=== PATIENT | male | born 1975 | race Caucasian/White ===

== ENCOUNTER 2018-02-26 10:19 | Observation (INO) | payer BC ==
[~2018-02-26] VITALS: Ht 185.4 cm; Wt 94.8 kg
[2018-02-26 11:26] LABS: Urine Bacteria NONE SEEN /hpf (None Seen); Urine Blood Negative /uL (Negative); Urine Mucus FEW (None Seen); Urine Specific Gravity 1.026 (1.001-1.035); Urine WBC 1 /hpf (0 - 3)
[2018-02-26 11:27] LABS: Basophils # (auto) 0 uL; Hemoglobin 16.4 g/dL (13.5-17.5); Mean Corpuscular Hgb Conc. 34.5 g/dL (32.0-36.0); Red Cell Distribution Width 12.9 % (11.8-14.3)
[2018-02-26 11:29] LABS: Basophils % (auto) 0.4 % (0.0-2.0); Eosinophils # (auto) 0.1 uL; Eosinophils % (auto) 0.7 % (0.0-7.0); Hematocrit 47.6 % (41.0-53.0); Lymphocytes % (auto) 12.6 % (10.0-50.0); Mean Corpuscular Hemoglobin 35.4 pg (28.0-32.0); Mean Corpuscular Volume 102.5 fL (80.0-100.0); Monocytes # (auto) 0.8 uL; Monocytes % (auto) 10.2 % (0.0-12.0); Neutrophils # (auto) 6.1 uL; Neutrophils % (auto) 76.1 % (37.0-80.0); Platelet Count (auto) 298 10^3/uL (140-450); Red Blood Cells 4.65 10^6/uL (4.5-5.90)
[2018-02-26 11:45] LABS: Alanine Aminotransferase 97 U/L (16-61); Albumin 4.3 g/dL (3.4-5.0); Alkaline Phosphatase 109 U/L (45-117); Anion Gap 8 (5-15); Aspartate Aminotransferase 78 U/L (15-37); BUN/Creatinine Ratio 11.9; Bilirubin, Total 0.8 mg/dL (0.2-1.0); Blood Urea Nitrogen 10 mg/dL (7-18); Calcium 8.7 mg/dL (8.5-10.1); Carbon Dioxide 24 mmol/L (21-32); Chloride 106 mmol/L (98-107); GFR African American 127 mL/min; GFR Non-African American 105 mL/min; Glucose 111 mg/dL (74-106); Potassium 4.2 mmol/L (3.5-5.1); Sodium 138 mmol/L (136-145); Total Protein 7.9 g/dL (6.4-8.2)
[2018-02-26 11:52] LABS: Alcohol, Urine < 3.0 mg/dL (0-5); Amphetamine Screen, Urine NEGATIVE (NEGATIVE); Barbiturate Scree,Urine NEGATIVE (NEGATIVE); Benzodiazephine Screen, Urine NEGATIVE (NEGATIVE); Cannabinoid Screen, Urine NEGATIVE (NEGATIVE); Cocaine Screen, Urine NEGATIVE (NEGATIVE); Opiate Scree,Urine POSITIVE (NEGATIVE); Phencyclidine Screen, Urine NEGATIVE (NEGATIVE)
[2018-02-26 12:57] LABS: INR 0.92 (0.9-1.15); Partial Thromboplastin Time 28.2 sec (23.78-33.04); Prothrombin Time 9.9 sec (9.27-12.13)
[2018-02-26] MEDS ORDERED: HYDROcodone-ACET 10/325MG TAB PO ONE (15:15)
[2018-02-26 15:18] VITALS: BP 151/93
== END 2018-02-26 16:39 | disposition home or self-care (01) | DRG 313 ==
LOC: ER 10:21 → OVERFLOW 10:22 → ER 16:38
PROVIDERS: ADMIT Family Medicine; ATTEND Family Medicine
DX: R07.2 Precordial pain (principal); R94.5 Abnormal results of liver function studies; Z82.49 Family history of ischemic heart disease and other diseases of the circulatory system; F17.210 Nicotine dependence, cigarettes, uncomplicated
CPT/HCPCS: 36415; 71046; 80053; 80307; 81001; 84484; 85025; 85379; 85610; 85730; 93005; 99285; G0378

== ENCOUNTER 2022-09-02 07:12 | Emergency (ER) | payer BC ==
[~2022-09-02] VITALS: Ht 185.4 cm; Wt 92.7 kg
[2022-09-02] MEDS ORDERED: FOLIC ACID 1 MG in D5W 5% 50 ML INJ STA (07:53)
[2022-09-02] MEDS ORDERED: THIAMINE 100mg/ml INJ (200mg/2ml VIAL) IV ONE (08:00)
[2022-09-02] MEDS ORDERED: MULTIPLE VITAMIN TAB PO ONE (08:00)
[2022-09-02 08:13] LABS: Basophils # (auto) 0.1 10 ^3/uL (0-0.2); Eosinophils # (auto) 0.1 10 ^3/uL (0-0.8)
[2022-09-02 08:14] LABS: Basophils % (auto) 0.7 % (0.0-2.0); Hematocrit 41.5 % (41.0-53.0); Lymphocytes # (auto) 3.3 10 ^3/uL (0.4-5.4); Lymphocytes % (auto) 34.5 % (10.0-50.0); Mean Corpuscular Hemoglobin 35.7 pg (28.0-32.0); Mean Corpuscular Hgb Conc. 36.1 g/dL (32.0-36.0); Mean Corpuscular Volume 98.7 fL (80.0-100.0); Monocytes # (auto) 0.7 10 ^3/uL (0-1.3); Monocytes % (auto) 7.1 % (0.0-12.0); Neutrophils # (auto) 5.4 10 ^3/uL (1.6-8.6); Neutrophils % (auto) 56.7 % (37.0-80.0); Nucleated Red Blood Cells % 0.1 %; Red Cell Distribution Width 13.2 % (11.8-14.3); White Blood Cell 9.4 10^3/uL (4.4-10.8)
[2022-09-02 08:18] LABS: Albumin 3.2 g/dL (3.4-5.0); Calcium 8.3 mg/dL (8.5-10.1); Magnesium 2.3 mg/dL (1.6-2.6); Potassium 3.3 mmol/L (3.5-5.1)
[2022-09-02 08:21] LABS: BUN/Creatinine Ratio 6.9 (10.0-20.0); Bilirubin, Total 0.4 mg/dL (0.2-1.0); Total Protein 6.9 g/dL (6.4-8.2)
[2022-09-02 08:30] LABS: INR 1.03 (0.9-1.15); Partial Thromboplastin Time 26.3 sec (24.6-33.4)
[2022-09-02] MEDS ORDERED: PANTOPRAZOLE 40 MG/10 ML VIAL INJ IV ONE (09:15)
[2022-09-02 10:30] LABS: Acetaminophen < 2.0 ug/mL (10-30); Salicylate 3.3 mg/dL (2.8-20.0)
[2022-09-02] MEDS ORDERED: SODIUM CHLORIDE 0.9% 1,000 ML IV ONE (11:00)
[2022-09-02] MEDS ORDERED: LORazepam 2MG/ML-1ML VIAL IV ONE ×2 (12:30→14:45)
[2022-09-02 12:44] LABS: Amphetamine Screen, Urine NEGATIVE (NEGATIVE); Barbiturate Scree,Urine NEGATIVE (NEGATIVE); Benzodiazephine Screen, Urine NEGATIVE (NEGATIVE); Cannabinoid Screen, Urine NEGATIVE (NEGATIVE); Cocaine Screen, Urine NEGATIVE (NEGATIVE); Phencyclidine Screen, Urine NEGATIVE (NEGATIVE)
[2022-09-02 12:45] LABS: Opiate Scree,Urine POSITIVE (NEGATIVE)
[2022-09-02 12:49] LABS: Urine Bacteria NONE SEEN /hpf (None Seen); Urine Blood Negative /uL (Negative); Urine Specific Gravity 1.012 (1.001-1.035); Urine WBC 1 /hpf (0 - 3)
[2022-09-02] MEDS ORDERED: CHL25C PO (13:21)
[2022-09-02 15:18] VITALS: BP 104/64
== END 2022-09-02 15:20 | disposition home or self-care (01) ==
LOC: ER 07:12
DX: F10.10 Alcohol abuse, uncomplicated (principal)
CPT/HCPCS: 36415; 71045; 80053; 80307; 80320; 80329; 81001; 83735; 85025; 85610; 85730; 96365; 96375; 96376; 99284; C9113; J2060; J3411; J7030; J7060

== ENCOUNTER 2024-09-03 12:29 | Inpatient (IN) | payer BC, MEDICAID ==
[~2024-09-03] VITALS: Ht 182.9 cm; Wt 96.9 kg
[~2024-09-03 12:29] MED LIST: CHL25C PO
[2024-09-03 13:35] VITALS: PULSE 105; RESP 20; O2SAT 92
[2024-09-03] MEDS: SODIUM CHLORIDE 0.9% 1,000 ML IV ONE ×2 (13:45→13:46)
[2024-09-03] MEDS: THIAMINE 100mg/ml INJ (200mg/2ml VIAL) IV ONE (13:46)
[2024-09-03] MEDS: LORazepam 2MG/ML-1ML VIAL IV ONE ×2 (13:46→18:29)
--- NOTE | 2024-09-03 13:52 | ED.PDOC ---
History of Present Illness HPI Comments 49 y/o M, brought in by presents to the ED for CC of ETOH withdrawal. Per patient's , patient has been binge drinking Vodka for [id number]. Patient's reports, patient has not had anything to eat in [id number] besides x2 jello cups. Upon arrival to the ED, patient is disorientated and having visual atkinson llucinations. No other symptoms or modifying factors obtainable at this time due to patients condition. Chief Complaint: Withdrawal Time Seen by MD: 13:20 Primary Care Provider: ЕЛЕНА Reviewed Notes: Nurses Notes, Medications, Allergies Allergies: Uncoded Allergies: CONTRAST IV (Allergy, Unknown, 09/02/22) Home Meds Active Scripts Chlordiazepoxide Hcl (Librium) 25 Mg Cp, 100 MG PO Q6HPRN PRN for 4 Days, #40 CAP Day 1: 100 mg by mouth every 6 hours as needed for symptoms Day 2: 100 mg by mouth every 8 hours as needed for symptoms Day 3: 100 mg by mouth every 12 hours as needed for symptoms Day 4: 100 mg by mouth at bedtime as needed Prov:GRACE GREER MD 09/02/22 Information Source: Patient Mode of Arrival: Wheelchair Severity: Moderate Timing: Days Duration: Since onset Prehospital treatment: None Family History Family History: No family hx of HTN Social History Smoker: Cigarettes, Greater Than 1 Pack/Day Alcohol: Rarely Drugs: Denies Drug Use Lives In: Home Unable to Obtain due to: Other (disorientation) Physical Exam General Appearance: Moderate Distress HEENT: Normal ENT Inspection, Pharynx Normal, TMs Normal Neck: Full Range of Motion, Non-Tender, Normal, Normal Inspection Respiratory: Chest Non-Tender, Lungs Clear, No Accessory Muscle Use, No Respiratory Distress, Normal Breath Sounds Cardiovascular: No Edema, No JVD, No Murmur, No Gallop, Normal Peripheral Pulses, Tachycardia Breast Exam: Deferred Gastrointestinal: No Organomegaly, Non Tender, No Pulsatile Mass, Normal Bowel Sounds, Soft Genitalia: Deferred Pelvic: Deferred Rectal: Deferred Extremities: No calf tenderness, Normal capillary refill, Normal inspection, Normal range of motion, Non-tender, No pedal edema Musculoskeletal : Apperance: Normal Neurologic: Alert, skein winder II-XII nml as Tested, No Motor Deficits, Normal Affect, Normal Mood, No Sensory Deficits Cerebellar Function: Normal Reflexes: Normal Skin: Dry, Normal Color, Warm Peripheral Pulses: 3+ Radial (R), 3+ Radial (L) Lymphatic: No Adenopathy Was a procedure done? Was a procedure done?: No Differential Dx Considerations may include: ETOH WITHDRAWAL X-Ray, Labs, Meds, VS Vital Signs Date Time Temp Pulse Resp B/P (MAP) Pulse Ox O2 Delivery O2 Flow Rate FiO2 09/03/24 15:00 109 22 134/94 (107) 95 09/03/24 14:41 105 20 119/103 (108) 92 09/03/24 14:38 109 26 134/92 (106) 93 09/03/24 13:35 105 20 92 Nasal Cannula* 1 24 09/03/24 13:22 98.5 125 20 119/103 (108) 92 98.5 09/03/24 12:55 97.0 125 21 157/98 (117) 95 97.0 Lab Test 09/03/24 14:03 Range/Units White Blood Count 8.4 4.4-10.8 10^3/uL Red Blood Count 3.97 L 4.5-5.90 10^6/uL Hemoglobin 13.9 13.5-17.5 g/dL Hematocrit 39.5 L 41.0-53.0 % Mean Corpuscular Volume 99.4 80.0-100.0 fL Mean Corpuscular Hemoglobin 35.1 H 28.0-32.0 pg Mean Corpuscular Hemoglobin Concent 35.3 32.0-36.0 g/dL Red Cell Distribution Width 13.6 11.8-14.3 % Platelet Count 183 140-450 10^3/uL Mean Platelet Volume 7.6 6.9-10.8 fL Neutrophils (%) (Auto) 75.7 37.0-80.0 % Lymphocytes (%) (Auto) 18.2 10.0-50.0 % Monocytes (%) (Auto) 5.6 0.0-12.0 % Eosinophils (%) (Auto) 0.2 0.0-7.0 % Basophils (%) (Auto) 0.3 0.0-2.0 % Neutrophils # (Auto) 6.4 1.6-8.6 10 ^3/uL Lymphocytes # (Auto) 1.5 0.4-5.4 10 ^3/uL Monocytes # (Auto) 0.5 0-1.3 10 ^3/uL Eosinophils # (Auto) 0 0-0.8 10 ^3/uL Basophils # (Auto) 0 0-0.2 10 ^3/uL Nucleated Red Blood Cells 0.1 % Sodium Level 134 L 136-145 mmol/L Potassium Level 3.8 3.5-5.1 mmol/L Chloride Level 95 L 98-107 mmol/L Carbon Dioxide Level 24 20-31 mmol/L Anion Gap 15 5-15 Blood Urea Nitrogen 13 9-23 mg/dL Creatinine 0.67 L 0.700-1.30 mg/dL Glomerular Filtration Rate Calc 113 >90 mL/min BUN/Creatinine Ratio 19.4 10.0-20.0 Serum Glucose 144 H 74-106 mg/dL Calcium Level 8.7 8.7-10.4 mg/dL Plasma/Serum Blood Alcohol 368.0 H <10 mg/dL Current Medications Medications (Trade) Dose Ordered Sig/Kwasi Route Start Time Stop Time Status Last Admin Thiamine HCl 100 mg ONCE ONCE IV 09/03/24 13:30 09/03/24 13:31 DC 09/03/24 13:46 Sodium Chloride 1,000 ml @ 1,000 mls/hr Q1H ONCE IV 09/03/24 13:30 09/03/24 14:29 DC 09/03/24 13:45 Sodium Chloride 1,000 ml @ 150 mls/hr Q6H40M ONCE IV 09/03/24 13:30 09/03/24 20:09 09/03/24 13:46 Lorazepam (Ativan Inj) 1 mg ONCE ONCE IV 09/03/24 13:30 09/03/24 13:31 DC 09/03/24 13:46 Patient alert. Alcohol abuse. Has been drinking for many weeks. Vitals stable. Establish intravenous access. Was given fluids. Was given Ativan. Was given thiamine. WBC within normal limits. Had to place him on oxygen. Withdrawing. Counseled family about drinking alcohol for 15 minutes. Reviewed his previous visit. Explained to the patient. Continue monitoring. Time of 1ST Reevaluation: 13:50 Reevaluation 1ST: Unchanged Patient Education/Counseling: Diagnosis, Treatment Family Education/Counseling: No Family Present Departure 1 Departure Time of Disposition: 16:37 Impression: Primary Impression: Alcohol intoxication Qualified Codes: F10.920 - Alcohol use, unspecified with intoxication, unco mplicated Disposition: ADMITTED INPATIENT Admit to: Med Surg Condition: Guarded Critical Care Note Critical Care Time?: Yes (90 min-critical care time only) Critical care comment: Increase alcohol level with tachycardia continue to monitor Stability Stability form required: No Heart Score Heart Score: Heart Score Response (Comments) Value History N/A 0 EKG N/A 0 Age N/A 0 Risk Factors N/A 0 Troponin N/A 0 Total 0 I personally scribed for RAZIA LEHMAN MD ([email or web address]) on 09/03/24 at 13:52. Electronically submitted by Shivani Montague ([email or web address]). RAZIA LEHMAN MD Sep 03, 2024 13:52
[2024-09-03 14:17] LABS: Basophils # (auto) 0 10 ^3/uL (0-0.2); Eosinophils # (auto) 0 10 ^3/uL (0-0.8); Hematocrit 39.5 % (41.0-53.0); Monocytes # (auto) 0.5 10 ^3/uL (0-1.3); Monocytes % (auto) 5.6 % (0.0-12.0); Red Blood Cells 3.97 10^6/uL (4.5-5.90)
[2024-09-03 14:19] LABS: Basophils % (auto) 0.3 % (0.0-2.0); Eosinophils % (auto) 0.2 % (0.0-7.0); Hemoglobin 13.9 g/dL (13.5-17.5); Lymphocytes # (auto) 1.5 10 ^3/uL (0.4-5.4); Lymphocytes % (auto) 18.2 % (10.0-50.0); Mean Corpuscular Hemoglobin 35.1 pg (28.0-32.0); Mean Corpuscular Hgb Conc. 35.3 g/dL (32.0-36.0); Mean Corpuscular Volume 99.4 fL (80.0-100.0); Neutrophils # (auto) 6.4 10 ^3/uL (1.6-8.6); Neutrophils % (auto) 75.7 % (37.0-80.0); Nucleated Red Blood Cells % 0.1 %; Platelet Count (auto) 183 10^3/uL (140-450); Red Cell Distribution Width 13.6 % (11.8-14.3); White Blood Cell 8.4 10^3/uL (4.4-10.8)
[2024-09-03 14:23] LABS: Potassium 3.8 mmol/L (3.5-5.1)
[2024-09-03 14:24] LABS: Anion Gap 15 (5-15); Calcium 8.7 mg/dL (8.7-10.4); Carbon Dioxide 24 mmol/L (20-31)
[2024-09-03 14:27] LABS: Chloride 95 mmol/L (98-107); Sodium 134 mmol/L (136-145)
[2024-09-03 14:29] LABS: BUN/Creatinine Ratio 19.4 (10.0-20.0); Blood Urea Nitrogen 13 mg/dL (9-23)
[2024-09-03 14:30] LABS: Glucose 144 mg/dL (74-106)
[2024-09-03] MEDS ORDERED: ONDANSETRON HCL 4 MG/2 ML VIAL IV PRN (17:45)
[2024-09-03] MEDS ORDERED: NITROGLYCERIN 0.4 MG SL TAB SL PRN (18:00)
[2024-09-03] MEDS ORDERED: DOCUSATE SOD 100 MG CAP PO PRN (18:00)
--- NOTE | 2024-09-03 18:04 | DVHHP2 ---
History of Present Illness History of Present Illness 49-year-old male with a history of chronic alcohol use and prior orthopedic surgeries (shoulder and knee) who presents to the emergency department brought in by his for alcohol withdrawal management. The patient has been binge drinking vodka for the past 14 days, consuming alcohol exclusively and taking in very limited nutrition (reportedly only Jell-O cups). His reports that the patient has been experiencing visual and auditory hallucinations. He recently lost his job after 20 years, is facing eviction, and is the primary financial provider for the household. He also reports emotional distress related to his mothers declining health. The patient acknowledges a longstanding history of alcohol use but states that he had previously stopped drinking and recently relapsed. His last drink was today at noon. He denies any drug use, active suicidal ideation, or homicidal thoughts. He does smoke tobacco. He has a mild cough but denies fever or respiratory distress. On exam, he appears mildly anxious but cooperative, oriented to person and place. In the ED, the patient received 2 liters of IV normal saline and Ativan. Initial labs revealed: CBC: Unremarkable BMP: Sodium 134 Glucose: 144 cmp pending to check liver enzymes etoh level elevated 368.0, No signs of acute infection or electrolyte derangem ents Given his active withdrawal symptoms, poor nutritional intake, and high- risk psychosocial factors, he will be admitted for alcohol withdrawal management and psychiatric/social support. Past Medical History Denies medical history Past Surgical History Surgical history shoulders and knee surgery Family History Mom is currently not doing well very ill Past Social History Patient's last drink was today at noon does smoke but denies drug use Review of Systems Constitutional: No: Fever, Chills, Sweats, Weakness, Malaise, Other Eyes: No: Pain, Vision change, Conjunctivae inflammation, Eyelid inflammation, Other, Redness ENT: No: Ear pain, Ear discharge, Nose pain, Nose discharge, Nose congestion, Mouth pain, Mouth swelling, Throat pain, Throat swelling, Other Respiratory: No: Cough, Dry, Shortness of breath, SOB with excertion, Wheezing, Hemoptysis, Pleuritic Pain, Sputum, Wheezing, Other Cardiovascular: No: Chest Pain, Palpitations, Orthopnea, Paroxysmal Noc. Dyspnea, Edema, Lt Headedness, Other Gastrointestinal: Nausea, Vomiting; No: Abdominal Pain, Diarrhea, Constipation, Melena, Hematochezia, Other Genitourinary: No Dysuria, No Frequency, No Incontinence, No Hematuria, No Retention, No Other Musculoskeletal: other (Mild tremor seen on exam); No: neck pain, shoulder pain, arm pain, back pain, hand pain, leg pain, foot pain Skin: No: Rash, Lesions, Jaundice, Bruising, Other Neurological: Weakness, Confusion; No: Numbness, Incoordination, Change in speech, Seizures, Other Allergies: Uncoded Allergies: CONTRAST IV (Allergy, Unknown, 09/02/22) Medications Current Medications Medications Dose Ordered Sig/Kwasi Route Start Time Stop Time Status Last Admin Dose Admin Ondansetron HCl 4 mg Q4HP PRN IV 09/03/24 17:45 Chlordiazepoxide HCl 50 mg Q8H PO 09/03/24 18:00 09/04/24 10:01 UNV Chlordiazepoxide HCl 50 mg Q12HR PO 09/04/24 10:00 09/04/24 22:01 UNV Chlordiazepoxide HCl 25 mg Q12HR PO 09/05/24 10:00 09/05/24 22:01 UNV Chlordiazepoxide HCl 25 mg QAM PO 09/06/24 07:00 09/06/24 07:01 UNV Sodium Chloride 1,000 ml @ 120 mls/hr Q8H20M IV 09/03/24 18:00 UNV Ondansetron HCl 4 mg Q4HP PRN IV 09/03/24 18:00 UNV Docusate Sodium 100 mg BIDPRN PRN PO 09/03/24 18:00 UNV Nitroglycerin 0.4 mg Q5MINP PRN SL 09/03/24 18:00 UNV Lorazepam 1 mg Q2HPRN PRN IV 09/03/24 18:00 UNV Folic Acid 1 mg/ Magnesium Sulfate 8 meq/ Multivitamins 10 ml/Thiamine HCl 100 mg/Sodium Chloride 1,013.2 ml @ 126.247 mls/hr DAILY@1800 INJ 09/03/24 18:00 UNV Exam Vital Signs Vital Signs Date Time Temp Pulse Resp B/P (MAP) Pulse Ox O2 Delivery O2 Flow Rate FiO2 09/03/24 17:00 66 14 114/73 (87) 98 09/03/24 13:35 Nasal Cannula* 1 24 09/03/24 13:22 98.5 98.5 General Appearance: Alert, Cooperative, Other (Mild tremors seen on my exam) HEENT: Atraumatic, PERRLA, EOMI, Mucous membr. moist/pink Respiratory: Clear to auscultation, Normal air movement Cardiovascular: Regular rate, Normal S1, Normal S2, No murmurs, Other (Tachycardia) Abdominal: Normal bowel sounds, Soft, No tenderness, No hepatospenomegaly, No masses Extremities: No clubbing, No cyanosis, No edema, Normal pulses, No tenderness/swelling Skin: No rashes, No breakdown, No significant lesion Neuro: Other (Neuro nonfocal) Labs/Xrays I reviewed labs, imaging CT scan abdomen pelvis, EKG and all diagnostic studies on this patient from ED records and the medical chart Labs Test 09/03/24 14:03 Range/Units White Blood Count 8.4 4.4-10.8 10^3/uL Red Blood Count 3.97 L 4.5-5.90 10^6/uL Hemoglobin 13.9 13.5-17.5 g/dL Hematocrit 39.5 L 41.0-53.0 % Mean Corpuscular Volume 99.4 80.0-100.0 fL Mean Corpuscular Hemoglobin 35.1 H 28.0-32.0 pg Mean Corpuscular Hemoglobin Concent 35.3 32.0-36.0 g/dL Red Cell Distribution Width 13.6 11.8-14.3 % Platelet Count 183 140-450 10^3/uL Mean Platelet Volume 7.6 6.9-10.8 fL Neutrophils (%) (Auto) 75.7 37.0-80.0 % Lymphocytes (%) (Auto) 18.2 10.0-50.0 % Monocytes (%) (Auto) 5.6 0.0-12.0 % Eosinophils (%) (Auto) 0.2 0.0-7.0 % Basophils (%) (Auto) 0.3 0.0-2.0 % Neutrophils # (Auto) 6.4 1.6-8.6 10 ^3/uL Lymphocytes # (Auto) 1.5 0.4-5.4 10 ^3/uL Monocytes # (Auto) 0.5 0-1.3 10 ^3/uL Eosinophils # (Auto) 0 0-0.8 10 ^3/uL Basophils # (Auto) 0 0-0.2 10 ^3/uL Nucleated Red Blood Cells 0.1 % Sodium Level 134 L 136-145 mmol/L Potassium Level 3.8 3.5-5.1 mmol/L Chloride Level 95 L 98-107 mmol/L Carbon Dioxide Level 24 20-31 mmol/L Anion Gap 15 5-15 Blood Urea Nitrogen 13 9-23 mg/dL Creatinine 0.67 L 0.700-1.30 mg/dL Glomerular Filtration Rate Calc 113 >90 mL/min BUN/Creatinine Ratio 19.4 10.0-20.0 Serum Glucose 144 H 74-106 mg/dL Calcium Level 8.7 8.7-10.4 mg/dL Plasma/Serum Blood Alcohol 368.0 H <10 mg/dL Assessment/Plan Assessment/Plan 49-year-old male with alcohol use disorder, presenting in early alcohol withdrawal with hallucinations, poor nutrition, and psychosocial stressors. At risk for severe withdrawal and complications. acute Alcohol withdrawal and intoxification with hallucinations and malnutrition Binge drinking x14 days; last drink today at noon Visual and auditory hallucinations No active seizures but does have delirium tremors CIWA initiated Plan: Admit for monitoring and withdrawal protocol CIWA scale every 4 hours Scheduled and PRN Ativan and librium tapering dose Banana bag: thiamine, folate, multivitamin, magnesium Repeat ethanol level in am Maintain IV hydration Monitor electrolytes and LFTs ordered seizure precautions and withdrawl monitor acute Malnutrition / dehydration Poor PO intake for 14 days Plan: IV fluids (NS at maintenance) Banana bag Advance diet as tolerated Monitor daily electrolytes and vit b 12 acute Mild hyponatremia (Na 134) Likely due to chronic alcohol use and poor nutrition Plan: Monitor sodium levels Correct slowly with fluids and refeeding Severe psychosocial stress and depressive symptoms Job loss, eviction, automation application engineer strain, emotional distress Denies SI/HI at this time Plan: Psychiatry consult for depression and substance use support ordered tele psych Social work consult for discharge planning and rehab placement to Discuss inpatient vs. outpatient substance abuse treatment options Tobacco use Continue nicotine patch if applicable Smoking cessation counseling if appropriate fen/ppx diet ivf protonix scd no dvt ppx since pt is ambulatory DISPOSITION Admit to inpatient medicine for alcohol withdrawal management. Monitor for seizures, hallucinations, or worsening withdrawal. Psychiatry and social work to follow for behavioral health support and discharge planning. Plan discussed with: Patient, Spouse My Orders Orders - BRYAN HOWE DNP Procedure Category Date Status Time Ondansetron Hcl PHA 09/03/24 In Process (Zofran) 17:45 Chlordiazepoxide Hcl PHA 09/03/24 Logged Capsule (Librium Ca 18:00 Chlordiazepoxide Hcl PHA 09/04/24 Logged Capsule (Librium Ca 10:00 Chlordiazepoxide Hcl PHA 09/05/24 Logged Capsule (Librium Ca 10:00 Chlordiazepoxide Hcl PHA 09/06/24 Logged Capsule (Librium Ca 07:00 Admit ADMIT 09/03/24 Transmitted 17:58 Allergies KIERAN 09/03/24 In Process 17:58 Code Status CODE 09/03/24 Transmitted 17:58 Sodium Chloride 0.9% PHA 09/03/24 Logged 18:00 Ondansetron Hcl PHA 09/03/24 Logged (Zofran) 18:00 Docusate Sodium PHA 09/03/24 Logged Capsule (Colace 18:00 Fall Risk Precautions KIERAN 09/03/[address] 17:58 Complete Blood Count LAB 09/04/24 Verified 04:00 Comprehensive LAB 09/04/24 Verified Metabolic Panel 04:00 Condition: Stable KIERAN 09/03/24 In Process 17:58 BRP KIERAN 09/03/24 In Process 17:58 Sequential KIERAN 09/03/24 In Process Compression Device Nitroglycerin PHA 09/03/24 Logged Sublingual (Ntrostat 18:00 Stat Ekg For Chest KIERAN 09/03/24 In Process Pain 17:58 Notify Of Changes KIERAN 09/03/24 In Process From Base 17:58 Qc Scientist For KIERAN 09/03/24 In Process 24 Hours 17:58 Emergency Dysrhythmia KIERAN 09/03/24 In Process Protocol 17:58 Rhythm Strips Once KIERAN 09/03/24 In Process Every Shift 17:58 Oxygen By Nasal RT 09/03/24 Transmitted Cannula 17:58 Blood Alcohol LAB 09/04/24 Verified 04:00 Drug Screen LAB 09/03/24 Logged 17:58 Pulse Oximetry ED NURSING 09/03/24 Transmitted 17:58 Magnesium LAB 09/03/24 Logged 17:58 Lorazepam 2mg/Ml Inj PHA 09/03/24 Logged (Ativan Inj) 18:00 Lorazepam 2mg/Ml Inj PHA 09/03/24 Logged (Ativan Inj) 18:00 Etoh Withdrawal KIERAN 09/03/24 In Process Assessment 17:58 Etoh Withdrawal KIERAN 09/03/24 In Process Assessment 17:58 Folic Acid... PHA 09/03/24 Logged 18:00 Regular Diet DIET 09/03/24 Verified Dinner * Hall Director CONS 09/03/24 Verified Consult *Tele Psych Consult CONS 09/03/24 Verified 18:02 Date of Service: Sep 03, 2024 Billing Provider: BRYAN HOWE DNP Common Visit Codes: [id number] INP/OBS CARE (HIGH) BRYAN HOWE DNP Sep 03, 2024 18:04
[2024-09-03] MEDS: chlordiazePOXIDE HCL 25 MG CAP PO SCH (18:29)
[2024-09-03] MEDS: SODIUM CHLORIDE 0.9% 1,000 ML IV SCH (18:30)
[2024-09-03 19:26] VITALS: PULSE 101; RESP 21; O2SAT 93
[2024-09-03] MEDS: FOLIC ACID 1 MG, MAGNESIUM SULF SDV 50% 8 MEQ, MULTIPLE VITAMIN 10 ML, THIAMINE INJ 100... INJ SCH (19:40)
[2024-09-03 20:18] LABS: Albumin 3.9 g/dL (3.2-4.8); Anion Gap 14 (5-15); BUN/Creatinine Ratio 19.4 (10.0-20.0); Bilirubin, Total 1.1 mg/dL (0.2-1.0); Blood Urea Nitrogen 12 mg/dL (9-23); Carbon Dioxide 23 mmol/L (20-31); Chloride 99 mmol/L (98-107); Potassium 3.9 mmol/L (3.5-5.1); Total Protein 6.3 g/dL (5.7-8.2)
[2024-09-03 20:26] LABS: Alanine Aminotransferase 183 U/L (7-40); Alkaline Phosphatase 155 U/L (46-116); Aspartate Aminotransferase 220 U/L (13-40); Calcium 8.2 mg/dL (8.7-10.4); Glucose 116 mg/dL (74-106); Sodium 136 mmol/L (136-145)
[2024-09-03] MEDS: LORazepam 2MG/ML-1ML VIAL IV PRN (21:06)
[2024-09-03 22:19] LABS: Benzodiazephine Screen, Urine Neg (NEGATIVE)
[2024-09-03 22:29] LABS: Amphetamine Screen, Urine Neg (NEGATIVE); Barbiturate Scree,Urine Neg (NEGATIVE); Cannabinoid Screen, Urine Neg (NEGATIVE); Cocaine Screen, Urine Neg (NEGATIVE); Opiate Scree,Urine Pos (NEGATIVE); Phencyclidine Screen, Urine Neg (NEGATIVE)
[2024-09-04 06:03] LABS: Basophils # (auto) 0 10 ^3/uL (0-0.2); Basophils % (auto) 0.4 % (0.0-2.0); Eosinophils # (auto) 0 10 ^3/uL (0-0.8); Eosinophils % (auto) 0.4 % (0.0-7.0); Hemoglobin 11.8 g/dL (13.5-17.5); Lymphocytes # (auto) 1.5 10 ^3/uL (0.4-5.4); Lymphocytes % (auto) 26.7 % (10.0-50.0); Mean Corpuscular Hemoglobin 34.7 pg (28.0-32.0); Mean Corpuscular Hgb Conc. 35.7 g/dL (32.0-36.0); Mean Corpuscular Volume 97.4 fL (80.0-100.0); Monocytes # (auto) 0.4 10 ^3/uL (0-1.3); Monocytes % (auto) 7.3 % (0.0-12.0); Neutrophils # (auto) 3.7 10 ^3/uL (1.6-8.6); Neutrophils % (auto) 65.2 % (37.0-80.0); Nucleated Red Blood Cells % 0.2 %; Platelet Count (auto) 125 10^3/uL (140-450); Red Blood Cells 3.38 10^6/uL (4.5-5.90); Red Cell Distribution Width 13.4 % (11.8-14.3); White Blood Cell 5.6 10^3/uL (4.4-10.8)
[2024-09-04 06:14] LABS: Alanine Aminotransferase 158 U/L (7-40); Albumin 3.6 g/dL (3.2-4.8); Alkaline Phosphatase 151 U/L (46-116); Anion Gap 7 (5-15); Aspartate Aminotransferase 187 U/L (13-40); BUN/Creatinine Ratio 23.9 (10.0-20.0); Bilirubin, Total 1.9 mg/dL (0.2-1.0); Blood Urea Nitrogen 16 mg/dL (9-23); Calcium 8.5 mg/dL (8.7-10.4); Carbon Dioxide 28 mmol/L (20-31); Chloride 102 mmol/L (98-107); Glucose 124 mg/dL (74-106); Potassium 3.3 mmol/L (3.5-5.1); Sodium 137 mmol/L (136-145); Total Protein 5.8 g/dL (5.7-8.2)
[2024-09-04 06:15] LABS: Blood Alcohol < 3.0 mg/dL (<10)
[2024-09-04 07:30] VITALS: PULSE 90; RESP 18; O2SAT 96
[2024-09-04] MEDS: THIAMINE 100mg/ml INJ (200mg/2ml VIAL) IM ONE (09:45)
[2024-09-04] MEDS: SODIUM CHLORIDE 0.9% 1,000 ML IV SCH ×2 (09:45→23:00)
[2024-09-04] MEDS: FOLIC ACID 1 MG in D5W 5% 50 ML INJ ONE (09:45)
[2024-09-04] MEDS: PANTOPRAZOLE 40 MG/10 ML VIAL INJ IV ONE (10:00)
[2024-09-04] MEDS ORDERED: THIAMINE HCL 100 MG TAB PO SCH (10:00)
[2024-09-04] MEDS: ENOXAPARIN SOD 40 MG/0.4 ML SYRINGE SC ONE (10:00)
[2024-09-04 10:03] LABS: Triglycerides 78 mg/dL (< 150)
[2024-09-04 10:04] LABS: LDL Cholesterol 76 mg/dL (< 100)
[2024-09-04 10:05] LABS: Cholesterol 149 mg/dL (< 200); HDL Cholesterol 52 mg/dL (40-59)
[2024-09-04 11:40] LABS: Hepatitis A Ab IgM Negative; Hepatitis B Core IgM Negative (Negative); Hepatitis B Surface Antigen Negative (Negative); Hepatitis C Antibody Negative (Negative)
[2024-09-04] MEDS: POTASSIUM CHL 20 Meq TABLET PO ONE (12:04)
[2024-09-04] MEDS: ONDANSETRON HCL 4 MG/2 ML VIAL IV PRN (12:08)
[2024-09-04] MEDS: chlordiazePOXIDE HCL 25 MG CAP PO ONE (12:17)
[2024-09-04 13:30] VITALS: BP_SYST 159; BP_DIAS 102; BP_DIAS 2; PULSE 99; RESP 18; TEMP 98.2; O2SAT 98
[2024-09-04 15:44] VITALS: PULSE 132
[2024-09-04 16:51] VITALS: BP 158/108; PULSE 117; RESP 18; TEMP 97.8; O2SAT 93
[2024-09-04] MEDS: hydrALAZINE HCL 20 MG/ML VL IV PRN (17:20)
--- NOTE | 2024-09-04 19:49 | DVHPNRES ---
Progress Note Date Seen: Sep 04, 2024 Resident Creating Document: GRACE DONAHUE RESIDENT Medical Necessity Reason Pt with a Central, PICC or Fol: No Subjective Review of Systems patient is 49-year-old male with a history of chronic alcohol use and prior orthopedic surgeries (shoulder and knee) who presents to the emergency department brought in by his for alcohol withdrawal management. The patient has been binge drinking vodka for the past 14 days, consuming alcohol exclusively and taking in very limited nutrition (reportedly only Jell-O cups). His reports that the patient has been experiencing visual and auditory hallucinations. He recently lost his job after 20 years, is facing eviction, and is the primary financial provider for the household. He also reports emotional distress related to his mothers declining health. The patient acknowledges a longstanding history of alcohol use but states that he had previously stopped drinking and recently relapsed. His last drink was today at noon. He denies any drug use, active suicidal ideation, or homicidal thoughts. He does smoke tobacco. He has a mild cough but denies fever or respiratory distress. On exam, he appears mildly anxious but cooperative, oriented to person and place. In the ED, the patient received 2 liters of IV normal saline and Ativan. Initial labs revealed: CBC: Unremarkable BMP: Sodium 134 Glucose: 144 cmp pending to check liver enzymes etoh level elevated 368.0,-negative for acute hepatic panel past Medical History-Denies medical history Past Surgical History-Surgical history shoulders and knee surgery Family History-Mom is currently not doing well very ill Past Social History-Patient's last drink was today at noon does smoke but denies drug use Patient was seen today at the bedside. Cardiovascular- deny acute chest pain or shortness of breath or cough or palpitation Respiratory denies cough or short of breath or wheezing Gastrointestinal- denies any rectal bleeding, nausea or vomiting Musculoskeletal-denies acute joint swelling or tenderness or redness Neurological- denies acute dysarthria, dysphagia, change in vision Psychiatry- denies depression or SI or HI Skin- denies acute rash or purpura Patient was seen today for clinical evaluation. Lebs than chart reviewed. Patient reported feeling better today. Hand shaking has stopped. No more hallucination today. Patient denied any depression. Patient was ordered for psych evaluation for recent stressful situation to help with the current stress patient is going through but patient denied. Objective vital signs Vital Sign Date Time Temp Pulse Resp B/P (MAP) Pulse Ox O2 Delivery O2 Flow Rate FiO2 09/04/24 17:20 158/102 09/04/24 16:51 97.8 117 18 93 97.8 09/04/24 13:30 Room Air* 0 21 Total Intake and Output 09/03/24 09/03/24 09/04/24 15:00 23:00 07:00 Intake Total 1000 ml 858.741 ml 1637.482 ml Balance 1000 ml 858.741 ml 1637.482 ml medications Current Medications Medications Dose Ordered Sig/Kwasi Route Start Time Stop Time Status Last Admin Dose Admin Chlordiazepoxide HCl 50 mg Q12HR PO 09/04/24 22:00 09/05/24 10:01 Chlordiazepoxide HCl 25 mg Q12HR PO 09/05/24 22:00 09/06/24 10:01 Chlordiazepoxide HCl 25 mg QAM PO 09/07/24 07:00 09/07/24 07:01 Ondansetron HCl 4 mg Q4HP PRN IV 09/03/24 18:00 09/04/24 12:08 4 MG Docusate Sodium 100 mg BIDPRN PRN PO 09/03/24 18:00 Nitroglycerin 0.4 mg Q5MINP PRN SL 09/03/24 18:00 Lorazepam 1 mg Q2HPRN PRN IV 09/03/24 18:00 09/04/24 12:05 1 MG Thiamine HCl 100 mg DAILY PO 09/05/24 10:00 Pantoprazole Sodium 40 mg DAILY IV 09/05/24 10:00 Enoxaparin Sodium 40 mg DAILY SC 09/05/24 10:00 Sodium Chloride 1,000 ml @ 100 mls/hr Q10H IV 09/04/24 13:00 Hydralazine HCl 10 mg Q6HP PRN IV 09/04/24 16:00 09/04/24 17:20 10 MG Examination General examination- , alert, oriented HEENT- PEERLA, no acute nasal discharge Cardiovascular- S1-S2 audible, rate and rhythm regular, no murmur Respiratory- CTAB, no wheeze or rhonchi Gastrointestinal-nontender, bowel sound+. Nondistended Musculoskeletal-no acute joint swelling or tenderness or redness Lower extremity- no leg edema Neurological- cranial nerves intact, no acute dysarthria or dysphagia Psychiatry- denies depression or SI or HI Skin- no acute rash or purpura laboratory and microbiology Laboratory Tests 09/04/24 05:23 Test 09/04/24 05:23 Range/Units Serum Glucose 124 H 74-106 mg/dL Problem List/Assessment/Plan Problem List/Assessment/Plan Assessment and plan-patients hallucination both auditory and visual has improved. no Tremor noted in the morning. CIWA score in the morning 01. Patient reports feeling better today patient denied psychiatry consult that was ordered due to patient's current stressful situation and about to be evicted and lost his job. Ordered INR at AM acute Alcohol withdrawal and intoxification with hallucinations and malnutrition-CIWA score 01 today acute Mild hyponatremia (Na 134) Severe psychosocial stress and anxiety from current speech stool situation Transaminitis likely due to alcohol induced injury-negative for acute hepatic panel Continue current CIWA protocol Continue IV fluid as prescribed Continue seizure percussion Patient was counseled about the effect of alcoholism on health Goals of care, Code status ; discussed with >15 minutes PUD prophylaxis: DVT prophylaxis: Plan discussed with Dr. Cohen , nursing staff, Total time spent on patient evaluation, chart review, assessment and plan, discussion discussion >35 minutes Plan discussed with: Patient, Spouse, Other (RN) My Orders My Orders Orders - GRACE DONAHUE Procedure Category Date Status Time Communication Order ORDERS 09/04/24 Transmitted 09:44 Urinalysis LAB 09/04/24 Logged 09:50 Pantoprazole PHA 09/05/24 In Process (Protonix) 10:00 Enoxaparin Sodium PHA 09/05/24 In Process (Lovenox) 10:00 Thiamine Tab PHA 09/05/24 In Process 10:00 * [employer] Architect CONS 09/04/24 Transmitted Consult 13:03 Prothrombin Time W/ LAB 09/05/24 Verified INR 04:00 Comprehensive LAB 09/05/24 Verified Metabolic Panel 04:00 Phosphorus LAB 09/05/24 Verified 04:00 Hydralazine Injection PHA 09/04/24 In Process (Apresoline Inject 16:00 Date of Service: Sep 04, 2024 Billing Provider: ASTON COX MD Common Visit Codes: [id number] INP/OBS CARE(HIGH) GRACE DONAHUE Sep 04, 2024 19:49 ASTON COX MD Sep 09, 2024 01:24
[2024-09-04 20:00] VITALS: PULSE 117; RESP 18; O2SAT 98
[2024-09-04 20:58] VITALS: BP 145/93; PULSE 115; RESP 16; TEMP 98; O2SAT 98
[2024-09-04] MEDS: chlordiazePOXIDE HCL 25 MG CAP PO SCH (22:26)
[2024-09-05] VITALS (7 sets, daily range): BP systolic 121–153; BP diastolic 74–98; PULSE 83–114; RESP 16–24; TEMP 97.7–98.9; O2SAT 95–100
[2024-09-05 02:09] LABS: Urine Bacteria None Seen /hpf (None Seen)
[2024-09-05 02:15] LABS: Urine Blood Negative /uL (Negative); Urine Clarity Clear (Clear); Urine Color Light-Yellow (Yellow); Urine Protein, UAD Negative (Negative); Urine Specific Gravity 1.007 (1.001-1.035); Urine Squamous Epithelial Cell None Seen /hpf (<5); Urine Urobilinogen Normal (Negative); Urine WBC 1 /HPF (0-3); Urine pH 7.5 (5.0-9.0)
[2024-09-05 06:38] LABS: Albumin 3.9 g/dL (3.2-4.8); Anion Gap 9 (5-15); BUN/Creatinine Ratio 11.9 (10.0-20.0); Bilirubin, Total 0.9 mg/dL (0.2-1.0); Calcium 9.5 mg/dL (8.7-10.4); Carbon Dioxide 27 mmol/L (20-31); Chloride 102 mmol/L (98-107); Phosphorus 2.8 mg/dL (2.4-5.1); Potassium 3.7 mmol/L (3.5-5.1); Sodium 138 mmol/L (136-145); Total Protein 6.4 g/dL (5.7-8.2)
[2024-09-05 06:51] LABS: Alanine Aminotransferase 146 U/L (7-40); Alkaline Phosphatase 143 U/L (46-116); Aspartate Aminotransferase 162 U/L (13-40); Blood Urea Nitrogen 8 mg/dL (9-23); Glucose 124 mg/dL (74-106)
[2024-09-05 07:03] LABS: INR 0.99 (0.9-1.15); Prothrombin Time 10.5 sec (9.3-11.8)
[2024-09-05] MEDS: PANTOPRAZOLE 40 MG/10 ML VIAL INJ IV SCH (10:43)
[2024-09-05] MEDS: THIAMINE HCL 100 MG TAB PO SCH (10:43)
[2024-09-05] MEDS: ENOXAPARIN SOD 40 MG/0.4 ML SYRINGE SC SCH (10:44)
--- NOTE | 2024-09-05 16:39 | DVHDS2 ---
Discharge Summary Date of Admission Sep 03, 2024 at 17:58 Date of Discharge: Sep 05, 2024 Labs/Diagnostic Data: Laboratory Results Test 09/05/24 05:39 09/05/24 02:08 09/04/24 10:06 09/04/24 05:23 Prothrombin Time 10.5 sec (9.3-11.8) Prothrombin Time INR 0.99 (0.9-1.15) Sodium Level 138 mmol/L (136-145) Potassium Level 3.7 mmol/L (3.5-5.1) Chloride Level 102 mmol/L (98-107) Carbon Dioxide Level 27 mmol/L (20-31) Anion Gap 9 (5-15) Blood Urea Nitrogen 8 mg/dL (9-23) Creatinine 0.67 mg/dL (0.700-1.30) Glomerular Filtration Rate Calc 113 mL/min (>90) BUN/Creatinine Ratio 11.9 (10.0-20.0) Serum Glucose 124 mg/dL (74-106) Calcium Level 9.5 mg/dL (8.7-10.4) Phosphorus Level 2.8 mg/dL (2.4-5.1) Total Bilirubin 0.9 mg/dL (0.2-1.0) Aspartate Amino Transferase (AST) 162 U/L (13-40) Alanine Aminotransferase (ALT) 146 U/L (7-40) Alkaline Phosphatase 143 U/L (46-116) Total Protein 6.4 g/dL (5.7-8.2) Albumin 3.9 g/dL (3.2-4.8) Urine Color Light-yellow (Yellow) Urine Clarity Clear (Clear) Urine pH 7.5 (5.0-9.0) Urine Specific [place] 1.007 (1.001-1.035) Urine Protein Negative (Negative) Urine Ketones Negative (Negative) Urine Blood Negative /uL (Negative) Urine Nitrite Negative (Negative) Urine Bilirubin Negative (Negative) Urine Urobilinogen Normal mg/dL (Negative) Urine Leukocyte Esterase Negative /uL (Negative) Urine RBC <1 /hpf (0 - 3) Urine Microscopic WBC 1 /HPF (0-3) Urine Squamous Epithelial Cells None seen /hpf (<5) Urine Bacteria None seen /hpf (None Seen) Urine Glucose Normal mg/dL (Normal) Lactic Acid Level 1.6 mmol/L (0.4-2.0) Lipase 84 U/L (12-53) Hepatitis A IgM Antibody Negative Hepatitis B Surface Antigen Negative (Negative) Hepatitis B Core IgM Antibody Negative (Negative) Hepatitis C Antibody Negative (Negative) White Blood Count 5.6 10^3/uL (4.4-10.8) Red Blood Count 3.38 10^6/uL (4.5-5.90) Hemoglobin 11.8 g/dL (13.5-17.5) Hematocrit 33.0 % (41.0-53.0) Mean Corpuscular Volume 97.4 fL (80.0-100.0) Mean Corpuscular Hemoglobin 34.7 pg (28.0-32.0) Mean Corpuscular Hemoglobin Concent 35.7 g/dL (32.0-36.0) Red Cell Distribution Width 13.4 % (11.8-14.3) Platelet Count 125 10^3/uL (140-450) Mean Platelet Volume 8.2 fL (6.9-10.8) Neutrophils (%) (Auto) 65.2 % (37.0-80.0) Lymphocytes (%) (Auto) 26.7 % (10.0-50.0) Monocytes (%) (Auto) 7.3 % (0.0-12.0) Eosinophils (%) (Auto) 0.4 % (0.0-7.0) Basophils (%) (Auto) 0.4 % (0.0-2.0) Neutrophils # (Auto) 3.7 10 ^3/uL (1.6-8.6) Lymphocytes # (Auto) 1.5 10 ^3/uL (0.4-5.4) Monocytes # (Auto) 0.4 10 ^3/uL (0-1.3) Eosinophils # (Auto) 0 10 ^3/uL (0-0.8) Basophils # (Auto) 0 10 ^3/uL (0-0.2) Nucleated Red Blood Cells 0.2 % Hemoglobin A1c 5.5 % A1C (<5.7) Triglycerides Level 78 mg/dL (< 150) Cholesterol Level 149 mg/dL (< 200) LDL Cholesterol 76 mg/dL (< 100) HDL Cholesterol 52 mg/dL (40-59) Thyroid Stimulating Hormone (TSH) 1.29 uIU/mL (0.55-4.78) Plasma/Serum Blood Alcohol < 3.0 mg/dL (<10) Test 09/03/24 21:34 09/03/24 19:31 09/03/24 14:03 Urine Opiates Screen Pos (NEGATIVE) Urine Fentanyl Screen Neg (NEGATIVE) Urine Barbiturates Screen Neg (NEGATIVE) Urine Phencyclidine Screen Neg (NEGATIVE) Urine Amphetamines Screen Neg (NEGATIVE) Urine Benzodiazepines Screen Neg (NEGATIVE) Urine Cocaine Screen Neg (NEGATIVE) Urine Cannabinoids Screen Neg (NEGATIVE) Vitamin B12 Level 864 pg/mL (211-911) Magnesium Level 2.3 mg/dL (1.6-2.6) Other Laboratory Tests 09/05/24 05:39 09/04/24 05:23 Brief Hx & Hospital Course: 49-year-old male with a history of chronic alcohol use and prior orthopedic surgeries (shoulder and knee) who presents to the emergency department brought in by his for alcohol withdrawal management. The patient has been binge drinking vodka for the past 14 days, consuming alcohol exclusively and taking in very limited nutrition (reportedly only Jell-O cups). His reports that the patient has been experiencing visual and auditory hallucinations. He recently lost his job after 20 years, is facing eviction, and is the primary financial provider for the household. He also reports emotional distress related to his mothers declining health. The patient acknowledges a longstanding history of alcohol use but states that he had previously stopped drinking and recently relapsed. His last drink was today at noon. He denies any drug use, active suicidal ideation, or homicidal thoughts. He does smoke tobacco. He has a mild cough but denies fever or respiratory distress. summary: On exam, he appears mildly anxious but cooperative, oriented to person and place. In the ED, the patient received 2 liters of IV normal saline and Ativan. Initial labs revealed: CBC: Unremarkable BMP: Sodium 134 Glucose: 144 cmp pending to check liver enzymes etoh level elevated 368.0,-negative for acute hepatic panel . Patient has elevated CIWA score and has poor p.o. intolerance, admitted for alcohol withdrawal and chronic alcohol dependence/addiction. Patient was started on Librium taper and prolonged CIWA protocol with aspiration precautions. Patient was well and no signs of worsening withdrawal. Patient was stable by 09/05. CIWA score 0. Tolerating p.o. and ambulating. Patient was stable for discharge as per plan below Diagnosis: acute Alcohol withdrawal, resolved alcohol intoxication PO intolerance resolved acute Mild hyponatremia, likely hypovolemic versus beer potomania Severe psychosocial stress anxiety Transaminitis likely due to alcohol induced injury Plan: -no additional medications - OTC daily multivitamin, daily OTC folate, daily OTC thiamine for next 2 weeks - follow up with PCP to discuss naltrexone for alcohol dependence surge Condition at Discharge: Fair Final Diagnosis/Problems List acute Alcohol withdrawal, resolved alcohol intoxication PO intolerance resolved acute Mild hyponatremia, likely hypovolemic versus beer potomania Severe psychosocial stress anxiety Transaminitis likely due to alcohol induced injury Discharge Disposition: Home Discharge Instruct/Medications Diet: Regular Activity: No Restrictions, As Tolerated Follow Up/Referral: PCP Medications: Below Discharge Statement: "Patient was advised to return to the ER or call 911 if any headaches, dizziness, shortness of breath, chest pain, abdominal pain, bleeding, fevers, or worsening of medical condition. Patient was counseled about treatment plan, medications, possible side effects, patientverbalized understanding. All questions were answered to the best of my ability. This discharge took greater then 30 minutes in planning, reviewing documentation, counseling the patient, and discussing with other team members." ASSESSMENT ASSESSMENT Assessment Date of Service: Sep 05, 2024 Billing Provider: ASTON COX MD Common Visit Codes: 68683-WZI/[id number] DISCH DAY >30min ASTON COX MD Sep 05, 2024 16:39
[2024-09-05] MEDS ORDERED: chlordiazePOXIDE HCL 25 MG CAP PO SCH (22:00)
[2024-09-07] MEDS ORDERED: chlordiazePOXIDE HCL 25 MG CAP PO SCH (07:00)
== END 2024-09-05 17:54 | disposition home or self-care (01) | DRG 816 ==
LOC: ER 12:34 → OVERFLOW 17:58 → TELE-WESTW 09-04 13:22
PROVIDERS: ADMIT Student in an Organized Health Care Education/Training Program; ATTEND Student in an Organized Health Care Education/Training Program
DX: T51.0X1A Toxic effect of ethanol, accidental (unintentional), initial encounter (principal); F10.231 Alcohol dependence with withdrawal delirium; E87.1 Hypo-osmolality and hyponatremia; E86.1 Hypovolemia; F10.220 Alcohol dependence with intoxication, uncomplicated; R44.1 Visual hallucinations; F17.210 Nicotine dependence, cigarettes, uncomplicated; F41.9 Anxiety disorder, unspecified; R74.01 Elevation of levels of liver transaminase levels; Z56.0 Unemployment, unspecified; Z68.28 Body mass index [BMI] 28.0-28.9, adult; Z79.899 Other long term (current) drug therapy; Y90.8 Blood alcohol level of 240 mg/100 ml or more
CPT/HCPCS: 36415; 80048; 80053; 80061; 80074; 80307; 80320; 81001; 82607; 83036; 83605; 83690; 83735; 84100; 84443; 85025; 85610; 96361; 96374; 99291; G0378; J2405; J2470; J7060